=== PATIENT | female | born 1940 | race Caucasian/White ===

== ENCOUNTER 2020-04-04 12:28 | Outpatient (CLI) | payer MEDICARE, OTHER, SELFPAY ==
--- NOTE | ~2020-04-04 | CT_ITS ---
EXAMINATION: CT brain wo/w con DATE: 04/04/2020 15:42 INDICATION: Unspecified symptoms and signs involving the nervous system. Dizziness and headache. Lopez sient right eye visual loss. TECHNIQUE: Computed tomography (CT) of the head was performed without and with 100 mL Omnipaque 350 i ntravenous contrast. The mA was adjusted according to patient size. Iterative reconstruction techniqu e was employed. The dose-length product was 1210.67 mGy-cm. COMPARISON: None FINDINGS: There are scattered areas of low attenuation in the cerebral white matter and right basal g anglia. There are dystrophic calcifications in the left basal ganglia. There is no intracranial hemor rhage, acute infarction, or abnormal intracranial mass lesion. The ventricles are normal in size. The re is mild mucosal thickening in the paranasal sinuses. There is a left-sided otomastoid effusion. Th ere are erosions of the ossicles on the left, consistent with chronic otitis media. The orbits are no rmal. IMPRESSION: 1. Mild nonspecific cerebral white matter disease and disease of the right basal ganglia, which likel y represents chronic small vessel ischemic disease. Reviewed, dictated and finalized at location A. IMPRESSION: 1. Mild nonspecific cerebral white matter disease and disease of the right basa l ganglia, which likely represents chronic small vessel ischemic disease.
--- NOTE | ~2020-04-04 | US_ITS ---
EXAMINATION: US carotid duplex BI DATE: 04/04/2020 14:11 INDICATION: Carotid stenosis. TECHNIQUE: Grayscale, color Doppler, and pulsed Doppler images of the cervical carotid arteries were obtained. The degree of vessel stenosis is placed in one of the following categories: normal, <50%, 5 0-69%, >=70% but less than near-occlusion, near-occlusion, or total occlusion. Note that percent sten osis relative to normal distal artery lumen diameter is indirectly measured from velocity measurement s as described by Michael, et al. Radiology 2003; 229:340-346. Notes: Normal: Peak systolic velocity <125 centimeters/sec and no plaque <50%. Peak systolic velocity <125 ( EDV <40; ICA/CCA PSV ratio <2.0; used these factors only a tandem lesions or low cardiac output or co ntralateral disease) 50-69 %: PSV 125-230 (EDV 40-100; ratio 2-4) >= 70% but less than near occlusion: PSV greater than 230 (EDV > 100; ratio> 4.0) Near Occlusion: PSV that is variable; markedly narrowed lumen Occlusion: Absent flow on color/spectral Doppler and no lumen on henriquez scale. COMPARISON: None. FINDINGS: RIGHT: The right common carotid artery (CCA) peak systolic velocity (PSV) is 74 cm/s. The right internal car otid artery (ICA) PSV is 54 cm/s. The right ICA end-diastolic velocity (EDV) is 15 cm/s. The right IC A/CCA PSV ratio is 0.7. The external carotid artery (ECA) PSV is 71 cm/s. There is antegrade flow in the right vertebral artery. LEFT: The left CCA PSV is 102 cm/s. The left ICA PSV is 66 cm/s. The left ICA EDV is 13 cm/s. The left ICA/ CCA PSV ratio is 0.7. The ECA PSV is 65 cm/s. There is antegrade flow in the left vertebral artery. IMPRESSION: 1. Less than 50% stenosis in the right internal carotid artery by sonographic criteria. 2. Less than 50% stenosis in the left internal carotid artery by sonographic criteria. Reviewed, dictated and finalized at location A. IMPRESSION: 1. Less than 50% stenosis in the right internal carotid artery by sonographic amrit marrero. 2. Less than 50% stenosis in the left internal carotid artery by sonographic naomy david.
[2020-04-04 13:32] LABS: Basophils Percent Auto 0.1 % (0.2-1.2); Eosinophils Absolute Auto 0.1 K/mm3 (0-0.3); Eosinophils Percent Auto 1.7 % (0-4.4); Hematocrit 43.5 % (37.0-47.0); Immature Granulocyte Absolute 0.02 K/mm3 (0.00-0.031); Immature Granulocyte Percent A 0.3 % (0-0.5); Lymphocytes Percent Auto 26.9 % (18.3-44.2); Mean Corpuscular HGB Conc 32.2 g/dl (32-36); Mean Corpuscular Hemoglobin 29.7 pg (26-34); Mean Corpuscular Volume 92.4 fl (80-100); Mean Platelet Volume 10.5 fl (7.4-10.4); Monocytes Absolute Auto 0.7 K/mm3 (0.1-0.6); Monocytes Percent Auto 8.3 % (2.6-8.5); Neutrophils Absolute Auto 4.9 K/mm3 (1.3-6.7); Neutrophils Percent Auto 62.7 % (45.5-73.1); Platelet Count Result 147 k/mm3 (150-375); Red Blood Count 4.71 M/mm3 (4.2-5.4); Red Cell Distribution Width 12.4 % (11.5-14.5); White Blood Count 7.8 K/mm3 (4.5-10.0)
[2020-04-04 13:38] LABS: Hemoglobin A1C 5.8 % (<5.7)
[2020-04-04 13:39] LABS: INR 1.1; Prothrombin Time 13.4 Seconds (11.1-14.7)
[2020-04-04 13:45] LABS: Cholesterol 133 mg/dL (0-200); HDL Direct 52 mg/dL; Triglycerides 138 mg/dL (<150)
[2020-04-04 13:47] LABS: Alanine Aminotransferase 15 U/L (4-35); Albumin Level 4.2 g/dL (3.5-5.1); Alkaline Phosphatase 100 U/L (38-126); Aspartate Amino Transferase 23 U/L (14-36); Bilirubin,Total 0.5 mg/dL (0.2-1.3); Blood Urea Nitrogen 24 mg/dL (7-17); CRP < 0.5 mg/dL (<1.0); Calcium 8.9 mg/dL (8.4-10.2); Carbon Dioxide 27 mmol/L (22-30); Chloride 106 mmol/L (98-107); Estimated Glomerular Filt Rate > 60; Glucose 98 mg/dL (65-105); Potassium 4.1 mmol/L (3.4-5.0); Sodium 140 mmol/L (137-145)
[2020-04-04 13:55] LABS: LDL Cholesterol Direct 51 mg/dL
[2020-04-04 14:17] LABS: Erythrocyte Sedimentation Rate 25 mm/hr (0-20)
== END 2020-04-04 12:29 | disposition home or self-care (01) ==
PROVIDERS: PCP Internal Medicine; Visit Provider Internal Medicine
DX: R29.90 Unspecified symptoms and signs involving the nervous system (principal); H53.9 Unspecified visual disturbance; I10 Essential (primary) hypertension; R90.82 White matter disease, unspecified; I65.23 Occlusion and stenosis of bilateral carotid arteries; Z79.899 Other long term (current) drug therapy
CPT/HCPCS: 36415; 70470; 80053; 80061; 83036; 85025; 85610; 85652; 86140; 93880; Q9967

== ENCOUNTER 2020-04-25 14:45 | Outpatient (CLI) | payer MEDICARE, OTHER, SELFPAY ==
--- NOTE | 2020-04-25 | ECHO_ITS ---
Patient Info Name: Kay Jurado Age: 80 years : 1940 Gender: Female Ht: 67 in Wt: 275 lbs BSA: 2.49 m2 HR: 87 bpm BP: 185 / 93 mmHg Technical Quality: Fair Exam Date: 04/25/2020 3:14 PM Exam Location: [facility] Patient Status: Outpatient Admit Date: 04/25/2020 Staff Ordering Physician: Cuauhtemoc Snyder MD Overedge Sewer: Debbie Collado RDCS Attending Provider: Cuauhtemoc Snyder MD Referring Physician: Lillian AL; Exam Type: CA echo doppler color flow Study Info Indications - mini stroke htn Complete two-dimensional, color flow and Doppler transthoracic echocardiogram is performed. Summary 1. Left ventricular chamber dimension is normal. 2. Left ventricular systolic function is normal, estimated at 60-65%. 3. The left ventricular diastolic function is grade I diastolic dysfunction. 4. E/e' 9 is minimally elevated. 5. Right atrial chamber dimension is mildly enlarged. 6. There is mild aortic valve sclerosis. 7. There is mild tricuspid valve regurgitation. 8. No pulmonary hypertension, estimated pulmonary arterial systolic pressure is 36 mmHg. Left Ventricle E/e' 9 is minimally elevated. Left ventricular chamber dimension is normal. Left ventricular systolic function is normal, estimated at 60-65%. The left ventricular diastolic function is grade I diastolic dysfunction. Right Ventricle Right ventricular chamber dimension is normal. Right ventricular systolic function is normal. Left Atria Left atrial chamber dimension is normal. Right Atria Right atrial chamber dimension is mildly enlarged. Aortic Valve The aortic valve is trileaflet. There is mild aortic valve sclerosis. There is no aortic valve stenosis. There is no aortic valve regurgitation. Pulmonic Valve There is no pulmonic regurgitation. Mitral Valve There is no mitral valve stenosis. There is no mitral valve regurgitation. Tricuspid Valve There is mild tricuspid valve regurgitation. No pulmonary hypertension, estimated pulmonary arterial systolic pressure is 36 mmHg. Pericardium/Pleural There is no pericardial effusion. Inferior Vena Cava Normal inferior vena cava with >50% collapse upon inspiration consistent with normal right atrial pressure, 5 mmHg. Aorta The aortic root size at the sinus of Valsalva is normal. Left Ventricular Outflow Tract Name Value Normal LVOT 2D LVOT Diameter 2.0 cm LVOT Doppler LVOT Peak Gradient 5 mmHg LVOT Mean Gradient 3 mmHg LVOT VTI 25 cm LVOT VTI/AV VTI Ratio 0.8 LVOT Stroke Volume 81 ml LVOT CO 17.0 l/min LVOT CI 6.8 l/min/m2 Pulmonic Valve Name Value Normal PV Doppler PV Peak Grad
--- NOTE | 2020-05-01 08:25 | WPDHOLTEREM ---
Holter/Event Monitor Holter/Event Monitor Date of procedure: 04/25/20 Procedure Type: 48 hour holter monitor Indications: Mini stroke Conclusion: 1. 48 hour holter monitor on 04/25/20. 2. Underlying rhythm is sinus rhythm. HR range 28-94 bpm; average HR 62 bpm. 3. There are 6,139 premature supraventricular complexes, 25 supraventricular couplets, 1,809 supraventricular bigeminy and 3 supraventricular trigeminy. No supraventricular tachycardia. 4. There are 1,171 premature ventricular complexes and 2 ventricular couplets. No ventricular tachycardia. 5. First degree AV block. Intermittent pauses greater than 2 seconds with longest pause at 2.8 seconds. 6. No symptoms available for correlation.
== END 2020-04-25 14:46 | disposition home or self-care (01) ==
PROVIDERS: PCP Internal Medicine; Visit Provider Internal Medicine
DX: I63.9 Cerebral infarction, unspecified (principal); I35.1 Nonrheumatic aortic (valve) insufficiency; I36.1 Nonrheumatic tricuspid (valve) insufficiency
CPT/HCPCS: 93225; 93226; 93306

== ENCOUNTER → 2021-07-31 15:17 | Outpatient (CLI) | payer MEDICARE, OTHER, SELFPAY ==
--- NOTE | ~2021-07-31 | XR_ITS ---
EXAMINATION: XR lumbar spine 6V w bending DATE: 07/31/2021 15:59 INDICATION: Low back pain, unspecified. TECHNIQUE: 7 views of lumbar spine including flexion and extension views were obtained. COMPARISON: CT abdomen and pelvis 11/10/2018 FINDINGS: There is 8 degrees dextrocurvature of lumbar spine. Vertebral body heights are normal. Ther e is moderately decreased disc height at L1-L2 and mildly decreased disc height at L2-L3, L3-L4, and L5-S1. There are endplate osteophytes at all levels. There is multilevel facet joint osteoarthritis, severe bilaterally at L4-L5 and L5-S1. The spine is hypomobile with flexion and extension. There is a stent graft in abdominal aorta and the common iliac arteries. There are stents in the right external and internal iliac arteries. There are are embolization coils in left internal iliac artery. Surgica l clips in the right upper quadrant are likely from cholecystectomy. IMPRESSION: 1. Moderate lumbar spondylosis. Reviewed, dictated and finalized at location A.
== END ==
PROVIDERS: PCP Internal Medicine; Visit Provider Internal Medicine
DX: M54.50 Low back pain, unspecified (principal); G89.29 Other chronic pain; M47.816 Spondylosis without myelopathy or radiculopathy, lumbar region
CPT/HCPCS: 72114

== ENCOUNTER → 2021-08-14 13:48 | Outpatient (CLI) | payer MEDICARE, OTHER, SELFPAY ==
--- NOTE | ~2021-08-14 | CT_ITS ---
EXAMINATION: CT lumbar spine wo con DATE: 08/14/2021 14:06 INDICATION: Lumbar radiculopathy. TECHNIQUE: Computed tomography (CT) of the lumbar spine was performed without intravenous contrast. A utomated exposure control and iterative reconstruction technique were employed. The dose-length produ ct was 867.91 mGy-cm. 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 There are embolization c oils in left internal iliac artery. 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 There is a 2.4 cm fusiform aneurysm of left common iliac artery. There is 9 degrees dextrocurvature of lumbar spine. There is mild chronic anterior wedging of L2 vertebral body. There is moderately de creased disc height at T12-L1, severely decreased disc height at L1-L2, mildly decreased disc height from L2-L3 through L4-L5, and severely decreased disc at L5-S1 with endplate remodeling. The followin g disc levels are specifically discussed: T12-L1: The disc is bulging. There is mild bilateral facet joint osteoarthritis. There is mild right neural foraminal stenosis. There is mild central canal stenosis. L1-L2: The disc is bulging. There is mild bilateral facet joint osteoarthritis. There is mild right a nd moderate left neural foraminal stenosis. There is mild central canal stenosis. L2-L3: The disc is bulging. There is severe bilateral facet joint osteoarthritis. There is mild bilat eral neural foraminal stenosis. There is mild central canal stenosis. L3-L4: The disc is bulging. There is severe bilateral facet joint osteoarthritis. There is mild bilat eral neural foraminal stenosis. There is mild central canal stenosis. L4-L5: The disc is bulging. There is severe bilateral facet joint osteoarthritis. There is moderate r ight and mild left neural foraminal stenosis. There is mild central canal stenosis. L5-S1: The disc is bulging. There is severe bilateral facet joint osteoarthritis. There is moderate r ight and mild left neural foraminal stenosis. There is mild central canal stenosis. IMPRESSION: 1. Severe lumbar spondylosis, mildly worsened from 05/30/2017. Reviewed, dictated and finalized at location A.
== END ==
PROVIDERS: PCP Internal Medicine; Visit Provider Nurse Practitioner Adult Health
DX: M54.16 Radiculopathy, lumbar region (principal); M47.816 Spondylosis without myelopathy or radiculopathy, lumbar region
CPT/HCPCS: 72131

== ENCOUNTER → 2022-07-07 14:06 | Outpatient (CLI) | payer MEDICARE, OTHER, SELFPAY ==
--- NOTE | ~2022-07-07 | XR_ITS ---
EXAM: XR knee LT 3V DATE: 07/07/2022 14:26 HISTORY: M25.569 - Pain in unspecified knee . COMPARISON: None available. FINDINGS: Decreased mineralization. No fracture or dislocation. No lytic or blastic lesion. Severe l ateral joint space narrowing. Tricompartmental osteophytosis, moderate in medial compartment. No eros ion or periosteal change. Soft tissues within normal limits. Moderate volume joint fluid. IMPRESSION: No acute osseous finding in the left knee. Moderate left knee joint effusion. Tricompartm ental arthritic changes, severe in the lateral compartment Reviewed, dictated and finalized at location K. IMPRESSION: No acute osseous finding in the left knee. Moderate left knee joint effusion. Tricompartmental arthritic changes, severe in the lateral compartmen t
== END ==
PROVIDERS: PCP Internal Medicine; Visit Provider Internal Medicine
DX: M25.462 Effusion, left knee (principal); M17.12 Unilateral primary osteoarthritis, left knee
CPT/HCPCS: 73562

== ENCOUNTER 2022-10-23 15:43 | Emergency (ER) | payer MEDICARE, OTHER, SELFPAY ==
--- NOTE | ~2022-10-23 | US_ITS ---
EXAMINATION: US venous doppler [facility] DATE: 10/23/2022 17:03 INDICATION: Left lower limb pain and swelling TECHNIQUE: Grayscale ultrasound images without and with compression and Doppler ultrasound images of the left lower extremity veins were obtained. COMPARISON: None. FINDINGS: The visualized portions of left common femoral vein, profunda (deep) femoral vein, femoral vein, popl iteal vein, peroneal veins, posterior tibial veins, gastrocnemius vein and greater saphenous vein out flow appear patent. Assessment of the posterior tibial and peroneal veins of the calf is however some what limited by the small size of the vessels relative to patient body habitus. IMPRESSION: 1. No deep venous thrombosis in the left lower limb. Reviewed, dictated and finalized at location A. [employer]PECTING [employer]PER[employer]
[2022-10-23 16:04] VITALS: BP 173/108; PULSE 83; RESP 16; TEMP 36.5; O2SAT 96
--- NOTE | 2022-10-23 17:32 | ED.EXTPRO ---
HPI - Extremity Problem General Chief complaint: Extremity Problem,Nontraumatic Stated complaint: L LEG PAIN AND SWELLING R/O DVT Time Seen by Provider: 10/23/22 17:10 History of Present Illness HPI Narrative: 82-year-old female presents to the emergency room for evaluation of left knee pain that radiates into her rosa for 3 months. States that she was evaluated by orthopedics they onset of her pain, and was given a steroid injection. Reports no relief following that injection. Patient states pain is worse with ambulation, and she is limiting her activity/ambulation. Constantly uses a walker. Denies any new injury or trauma. Patient states that she contacted her PCP earlier today requesting an MRI, and he recommended patient come to the emergency room to be evaluated for a DVT Related Data Home Medications Medication Instructions Recorded Confirmed aspirin 81 mg tablet,delayed 81 mg PO DAILY 04/11/20 07/23/22 release (Adult Low Dose Aspirin) cholecalciferol (vitamin D3) 50 100 mcg PO DAILY 07/23/21 07/23/22 mcg (2,000 unit) capsule Allergies Allergy/AdvReac Type Severity Reaction Status Date / Time ciprofloxacin AdvReac Mild Itching Verified 10/23/22 17:17 Review of Systems Review of Systems: CONSTITUTIONAL: Denies fever, chills, or sweats. EYES: Denies visual changes, redness, or discharge. ENT: Denies rhinorrhea, congestion, sore throat, or otalgia. CARDIOVASCULAR: Denies chest pain, palpitations, or edema. RESPIRATORY: Denies cough or dyspnea. GASTROINTESTINAL: Denies abdominal pain, nausea, vomiting, or diarrhea. GENITOURINARY: Denies dysuria or hematuria. SKIN: Denies rash or itching. MUSCULOSKELETAL: Reports left knee pain NEUROLOGIC: Denies headache, numbness, dizziness, or weakness. PSYCHIATRIC: Denies anxiety or depression. [facility] Past Medical History Medical History Abnormal finding of blood chemistry, unspecified Acute gangrenous cholecystitis Amaurosis fugax Aneurysm artery, iliac Aneurysm, common iliac artery Benign essential hypertension Body mass index (BMI) 40.0-44.9, adult Calculus of gallbladder Carotid stenosis Chronic low back pain Chronic UTI COPD (chronic obstructive pulmonary disease) DJD (degenerative joint disease) Dysuria Elbow pain, left Elevated glucose Encounter for Medicare annual wellness exam Encounter for routine adult health examination without abnormal findings Folliculitis Follow up Grade I diastolic dysfunction Hearing loss of both ears History of abdominal aortic aneurysm (AAA) History of amaurosis fugax History of TIA (transient ischemic attack) Hx of colonic polyps Hyperlipidemia Loss of part of visual field Need for influenza vaccination On terminal makeup operator drug therapy Pain in left arm PVD (peripheral vascular disease) Rash Symptoms of cerebrovascular accident (CVA) TIA (transient ischemic attack) Urinary frequency UTI (urinary tract infection) Vision changes Vitamin D deficiency Xanthelasma of left upper eyelid Surgical History Surgical History History of cholecystectomy S/P cholecystectomy Family History Family History Father Family history of aortic aneurysm Hypertension Mother Family history of malignant melanoma Family history of malignant neoplasm Sibling Family history of malignant melanoma Social History Social History Smoking status: Former smoker Second hand tobacco smoke exposure: No Smoking end date: 10/26/84 Alcohol intake: never Exam Narrative: GENERAL: Well-appearing, well-nourished, no physical limitations, and in no acute distress. HEAD: Normocephalic, atraumatic. EYES: Conjunctivae normal, PERRLA and EOMI. CHEST: Clear to auscultation. No respiratory distress. No wheezes rales or rhonchi. HEAR
== END 2022-10-23 18:40 | disposition home or self-care (01) ==
LOC: ANHED 18:12
PROVIDERS: Emergency Provider Nurse Practitioner Family; PCP Internal Medicine
DX: M25.562 Pain in left knee (principal); G89.29 Other chronic pain; I10 Essential (primary) hypertension; J44.9 Chronic obstructive pulmonary disease, unspecified; E78.5 Hyperlipidemia, unspecified; I73.9 Peripheral vascular disease, unspecified; E55.9 Vitamin D deficiency, unspecified; Z87.440 Personal history of urinary (tract) infections; Z86.73 Personal history of transient ischemic attack (TIA), and cerebral infarction without residual deficits; Z86.010 Personal history of colon polyps; Z79.82 Long term (current) use of aspirin; Z87.891 Personal history of nicotine dependence
CPT/HCPCS: 93971; 99284

== ENCOUNTER 2023-02-23 12:41 | Emergency (ER) | payer MEDICARE, OTHER, SELFPAY ==
[2023-02-23] VITALS (11 sets, daily range): BP systolic 153–172; BP diastolic 69–99; PULSE 61–67; RESP 16–20; TEMP 36.5; O2SAT 95–99
--- NOTE | ~2023-02-23 | CT_ITS ---
EXAMINATION: CTA abdomen pelvis DATE: 02/23/2023 16:35 INDICATION: Blood in stool. TECHNIQUE: Computed tomographic angiography (CTA) of the abdomen and pelvis was performed with 100 mL Omnipaque-350 intravenous contrast. Automated exposure control and iterative reconstruction techniqu e were employed. The dose-length product was 1509.05 mGy-cm. Maximum intensity projection 3D-reconstr uctions of the aorta and other arteries were constructed by the technologist on a separate workstatio n. COMPARISON: CT abdomen and pelvis 11/10/2018 FINDINGS: The visualized portions of the lung bases demonstrate mild atelectasis. No pleural effusion . The heart size is normal. There are coronary artery calcifications. No pericardial effusion. There are cysts in the liver measuring up to 10 mm. There are changes of cholecystectomy. The spleen, pancr eas, and adrenal glands are normal. There are is cortical thinning of the kidneys. There are cysts in the kidneys measuring up to 1.4 cm on the left. There is a 15 mm mass in left kidney measuring soft tissue attenuation. There is a stent graft in abdominal aorta and the common and external iliac arter ies and right internal iliac artery. There is occlusion of left internal iliac artery. There is no ab dominal aortic aneurysm. There is no significant stenosis of celiac axis, superior mesenteric artery, or the renal arteries. There is total occlusion of proximal inferior mesenteric artery. There is div erticulosis of the colon without evidence of diverticulitis. There are no dilated loops of bowel. The appendix is normal. There are no pathologically enlarged lymph nodes. There is no free intraperitone al fluid. There is severe lumbar spondylosis. IMPRESSION: 1. No etiology for blood in stool. 2. 15 mm left kidney mass, which may be a hemorrhagic cyst or less likely a neoplasm. Abdomen CT with out and with contrast is recommended. Reviewed, dictated and finalized at location A. IMPRESSION: 1. No etiology for blood in stool. 2. 15 mm left kidney mass, which may be a hemorrhagic cyst or less likely a samuel plasm. Abdomen CT without and with contrast is recommended.
[2023-02-23] MEDS: PANTOPRAZOLE SODIUM IV 40 MG VIAL IV PUSH (15:52)
[2023-02-23 15:58] LABS: Basophils Percent Auto 0.4 % (0.2-1.2); Eosinophils Absolute Auto 0.1 K/mm3 (0-0.3); Eosinophils Percent Auto 1.2 % (0-4.4); Hematocrit 45.5 % (37.0-47.0); Hemoglobin 14.7 g/dL (12.0-15.0); Immature Granulocyte Absolute 0.02 K/mm3 (0.00-0.031); Immature Granulocyte Percent A 0.3 % (0-0.5); Lymphocytes Absolute Auto 2.03 K/mm3 (0.9-3.2); Lymphocytes Percent Auto 26.6 % (18.3-44.2); Mean Corpuscular HGB Conc 32.3 g/dl (32-36); Mean Corpuscular Hemoglobin 29.6 pg (26-34); Mean Corpuscular Volume 91.7 fl (80-100); Mean Platelet Volume 10.4 fl (7.4-10.4); Monocytes Absolute Auto 0.6 K/mm3 (0.1-0.6); Monocytes Percent Auto 7.3 % (2.6-8.5); Neutrophils Absolute Auto 4.9 K/mm3 (1.3-6.7); Neutrophils Percent Auto 64.2 % (45.5-73.1); Platelet Count Result 152 k/mm3 (150-375); Red Blood Count 4.96 M/mm3 (4.2-5.4); Red Cell Distribution Width 12.4 % (11.5-14.5); White Blood Count 7.6 K/mm3 (4.5-10.0)
[2023-02-23 16:07] LABS: Prothrombin Time 14.1 Seconds (11.1-14.7)
[2023-02-23 16:08] LABS: Alanine Aminotransferase 18 U/L (6-35); Albumin Level 4.4 g/dL (3.5-5.1); Alkaline Phosphatase 112 U/L (38-126); Anion Gap 5 mmol/L (8-16); Aspartate Amino Transferase 27 U/L (14-36); Bilirubin,Total 1.1 mg/dL (0.2-1.3); Blood Urea Nitrogen 15 mg/dL (7-17); Calcium 9.1 mg/dL (8.4-10.2); Carbon Dioxide 30 mmol/L (22-30); Chloride 104 mmol/L (98-107); Estimated CRCL calculation 56 ml/min; Estimated Glomerular Filt Rate > 60; Glucose 98 mg/dL (65-110); Magnesium 2.1 mg/dL (1.6-2.3); Sodium 139 mmol/L (137-145)
[2023-02-23 16:09] LABS: Partial Thromboplastin Time 29.7 SECONDS (22.3-36.8)
--- NOTE | 2023-02-23 17:36 | ED.GIBLEED ---
HPI - GI Bleed General Chief complaint: GI Bleed Stated complaint: blood in stool with BM Time Seen by Provider: 02/23/23 15:36 History of Present Illness HPI Narrative: Pt has intermittently noticed some blood in her stool for the last month, only when she has bowel movements and not otherwise. No abdominal pain, nausea or vomiting. Related Data Home Medications Medication Instructions Recorded Confirmed aspirin 81 mg tablet,delayed 81 mg PO DAILY 04/11/20 01/21/23 release (Adult Low Dose Aspirin) cholecalciferol (vitamin D3) 50 100 mcg PO DAILY 07/23/21 01/21/23 mcg (2,000 unit) capsule Allergies Allergy/AdvReac Type Severity Reaction Status Date / Time ciprofloxacin AdvReac Mild Itching Verified 02/23/23 15:57 Review of Systems Review of Systems: CONST: No fever. HEENT: No sore throat C/V: No chest pain RESP: No cough GI: Some blood in stool : No dysuria. M/S: No joint pain. SKIN: No rash. NEURO: [No headache or focal numbness or weakness] PSYCH: [No depression] [facility] Past Medical History Medical History Abnormal finding of blood chemistry, unspecified Acute gangrenous cholecystitis Amaurosis fugax Aneurysm artery, iliac Aneurysm, common iliac artery Benign essential hypertension Body mass index (BMI) 40.0-44.9, adult Calculus of gallbladder Carotid stenosis Chronic low back pain Chronic UTI COPD (chronic obstructive pulmonary disease) DJD (degenerative joint disease) Dysuria Elbow pain, left Elevated glucose Encounter for Medicare annual wellness exam Encounter for routine adult health examination with abnormal findings Encounter for routine adult health examination without abnormal findings Folliculitis Follow up Grade I diastolic dysfunction Hearing loss of both ears History of abdominal aortic aneurysm (AAA) History of amaurosis fugax History of TIA (transient ischemic attack) Hx of colonic polyps Hyperlipidemia Loss of part of visual field Need for influenza vaccination On buttermaker drug therapy Pain in left arm PVD (peripheral vascular disease) Rash Symptoms of cerebrovascular accident (CVA) TIA (transient ischemic attack) Urinary frequency UTI (urinary tract infection) UTI (urinary tract infection) Vision changes Vitamin D deficiency Xanthelasma of left upper eyelid Surgical History Surgical History History of cholecystectomy S/P cholecystectomy Family History Family History Father Family history of aortic aneurysm Hypertension Mother Family history of malignant melanoma Family history of malignant neoplasm Sibling Family history of malignant melanoma Social History Social History Smoking status: Former smoker Second hand tobacco smoke exposure: No Smoking end date: 10/26/84 Alcohol intake: never Lack of Transportation: No Lack of Food: Never True Current Housing: I Have Housing Concerned About Future Housing: No Difficulty Paying Gas/Electric Bills: No Difficulty Paying for Meds: No Currently Unemployed: No Education: High School Diploma/GED Difficulty w/ Childcare or Family Care: No Living arrangements: with family Gender identity (if verbalized by the patient): Female Exam Narrative: EXAMINATION OF ORGAN SYSTEMS/BODY AREAS: Constitutional: Vital signs per nursing GENERAL:[No acute distress, non-toxic appearing.] HEAD: Normal with no signs of head trauma. EYES: EOMI, conjunctiva normal ENT: Hearing grossly intact LUNGS: Nonlabored breathing. HEART: [Regular rate and rhythm] ABD: [Soft], [nontender to palpation] RECTAL: Grossly brown stool, hemoccult+ EXT: Normal range of motion SKIN: [No rashes or lesions.] NEURO: [Alert and oriented x 3. No gross focal sensory or strength deficits.] PSYCH: Normal affect
--- NOTE | 2023-02-23 17:45 | PC.NURSE ---
patient voided and requested urinalysis to see if she had UTI. hx of recurring UTIs. Provider aware. new orders received. patient aware discharge will be postponed until results available. verbalized understanding
[2023-02-23 18:00] LABS: Bacteria Urine 4+ /hpf; Non Pathogenic Casts 0-2; RBC Urine 0-2 /hpf (0-2); Squamous Epithelial Cell Urine None seen /hpf (Few); WBC Urine 0-5 /hpf
[2023-02-23 18:10] LABS: Appearance Urine Slightly Cloudy (Clear); Bilirubin Urine Negative (Negative); Blood Urine Trace-intact (Negative); Color Urine Yellow (Yellow); Glucose Urine UA Negative (Negative); Ketones Urine Negative (Negative); Leukocyte Esterase Ur Negative LEU/UL (Negative); Nitrate Urine Positive (Negative); Protein Urine Negative (Negative); Urobilinogen Urine 0.2 mg/dL (<2.0); pH Urine 5.5 (5.0-9.0)
[2023-02-23 18:13] LABS: Add Urine Microscopic? YES
== END 2023-02-23 18:19 | disposition home or self-care (01) ==
PROVIDERS: Emergency Provider Emergency Medicine; PCP Internal Medicine
DX: K92.1 Melena (principal); I10 Essential (primary) hypertension; I65.29 Occlusion and stenosis of unspecified carotid artery; I73.9 Peripheral vascular disease, unspecified; J44.9 Chronic obstructive pulmonary disease, unspecified; E78.5 Hyperlipidemia, unspecified; E55.9 Vitamin D deficiency, unspecified; Z86.73 Personal history of transient ischemic attack (TIA), and cerebral infarction without residual deficits; Z87.440 Personal history of urinary (tract) infections; Z86.010 Personal history of colon polyps; Z87.891 Personal history of nicotine dependence; Z90.49 Acquired absence of other specified parts of digestive tract; Z79.82 Long term (current) use of aspirin
CPT/HCPCS: 36415; 74174; 80053; 81001; 83735; 85025; 85610; 85730; 86850; 86900; 86901; 96374; 99284; C9113; Q9967

== ENCOUNTER 2023-03-26 12:53 | Outpatient (CLI) | payer MEDICARE, OTHER, SELFPAY ==
--- NOTE | ~2023-03-26 | CT_ITS ---
EXAMINATION: CT abdomen pelvis wo/w con DATE: 03/26/2023 13:27 INDICATION: Left kidney mass TECHNIQUE: Computed tomography (CT) of the abdomen was performed without intravenous contrast. CT of the abdomen and pelvis was then performed with a total of 100 mL Omnipaque 350 intravenous contrast. The dose-length product (DLP) was 2162.05 mGy-cm. Automated exposure control and iterative reconstruc tion technique were employed. COMPARISON: 02/23/2023 FINDINGS: Minimal dependent atelectasis is present in the lung bases. The heart size is normal. Cysts of the liver measure up to 9 mm in the right hepatic lobe. The spleen, pancreas, and adrenal glands are normal. The gallbladder is surgically absent. There is a 15 mm mass of the left kidney upper pole which is mildly hyperattenuating on precontrast images and without significant enhancement after con trast administration. Simple cysts of the kidneys measure up to 10 mm on the left. No pathologically enlarged abdominal or pelvic lymph nodes are identified. No free intraperitoneal gas or evidence of b owel obstruction. There is an aortobiiliac endoluminal stent. There is occlusion of the left internal iliac artery. There is no abdominal aortic aneurysm. The inferior mesenteric artery is occluded prox imally. There is severe lumbar spondylosis. IMPRESSION: 1. Proteinaceous cyst of the left kidney accounting for the finding in question on comparison CT. Reviewed, dictated and finalized at location L.
== END 2023-03-26 12:54 | disposition home or self-care (01) ==
PROVIDERS: PCP Internal Medicine; Visit Provider Internal Medicine
DX: N28.1 Cyst of kidney, acquired (principal)
CPT/HCPCS: 74178; Q9967

== ENCOUNTER 2023-08-26 14:57 | Outpatient (CLI) | payer MEDICARE, OTHER, SELFPAY ==
--- NOTE | ~2023-08-26 | XR_ITS ---
EXAM: XR hip RT 2V w AP pelvis DATE: 08/26/2023 15:22 HISTORY: CHRONIC PAIN, NO INJURY . COMPARISON: 02/26/2007. FINDINGS: Decreased mineralization. No fracture or dislocation. No lytic or blastic lesion. Moderate degenerative changes in the bilateral hips and pubic symphysis. No erosion or periosteal change. Sof t tissues within normal limits. Iliac stent grafts. Pelvic embolization coil. IMPRESSION: Moderate bilateral hip osteoarthritis. Moderate osteitis pubis. Reviewed, dictated and finalized at location K.
--- NOTE | ~2023-08-26 | XR_ITS ---
EXAM: XR knee LT min 4V DATE: 08/26/2023 15:23 HISTORY: CHRONIC PAIN, NO INJURY . COMPARISON: 07/07/2022. FINDINGS: Normal mineralization. No fracture or dislocation. No lytic or blastic lesion. Moderate me dial joint space narrowing. Moderate tricompartmental osteophytosis. Small volume joint effusion. No erosion or periosteal change. Soft tissues within normal limits. IMPRESSION: Moderate tricompartmental left knee osteoarthritis. Reviewed, dictated and finalized at location K.
== END 2023-08-26 14:58 | disposition home or self-care (01) ==
PROVIDERS: PCP Internal Medicine; Visit Provider Internal Medicine
DX: M16.0 Bilateral primary osteoarthritis of hip (principal); M86.9 Osteomyelitis, unspecified; M17.12 Unilateral primary osteoarthritis, left knee
CPT/HCPCS: 73502; 73564

== ENCOUNTER 2024-10-06 14:05 | Outpatient (CLI) | payer MEDICARE, OTHER, SELFPAY ==
--- NOTE | ~2024-10-06 | US_ITS ---
EXAMINATION: US venous doppler [facility] DATE: 10/06/2024 14:57 INDICATION: Left lower limb edema. TECHNIQUE: Grayscale ultrasound images without and with compression and Doppler ultrasound images of the bilateral lower extremity veins were obtained. COMPARISON: Ultrasound 10/23/2022 FINDINGS: The visualized portions of right common femoral vein, profunda (deep) femoral vein, femoral vein, pop liteal vein, peroneal veins, posterior tibial veins, and greater saphenous vein outflow are patent. The visualized portions of left common femoral vein, profunda femoral vein, femoral vein, popliteal v ein, peroneal veins, posterior tibial veins, and greater saphenous vein outflow are patent. IMPRESSION: 1. No deep venous thrombosis. Reviewed, dictated and finalized at location A. [employer] OPERATOR
--- OUTSIDE RECORDS SUMMARY | 2024-10-06 14:09 | XMS_ITS | Continuity of Care Document ---
Author Name [facility] Organization [facility] Care Team Providers Care Patient Advocate Name Role Phone [facility] Unavailable Unavailable Medications Combined list of outpatient medications from Department of Defense and Veterans Affairs facilities.Medications provided include 1) outpatient medications from the last 15 months, and 2) patient-reported medications. Medication Details Route Status Patient Instructions Prescription Expires Prescription Number Last Dispense Date Ordering Provider Order Date Order Qty Source CARVEDILOL (CARVEDILOL ), 12.5MG, TABLET, ORAL, [employer], 500 ea. BOTTLE Active [id number] 4 2023 180 Pharmac y Data Trans[employer] tion Service Facilit y CEPHALEXIN (CEPHALEXIN MONOHYDRATE ), 500MG, CAPSULE, ORAL, [employer] [place], 500 ea. BOTTLE Active [id number] 4 2023 20 Pharmac y Data Transac tion Service Facilit y CEPHALEXIN (CEPHALEXIN MONOHYDRATE ), 500MG, CAPSULE, ORAL, [employer] [place], 500 ea. BOTTLE Active [id number] 4 2023 20 Pharmac y Data Transac tion Service Facilit y CEPHALEXIN (CEPHALEXIN MONOHYDRATE ), 500MG, CAPSULE, ORAL, [employer] [place], 500 ea. BOTTLE Cancele d [id number] : 2023 0 Pharmac y Data Transac tion Service Facilit y CIPROFLOXAC IN HCL (CIPROFLOXA TRISTAN HCL), 250MG, TABLET, ORAL, [facility], 100 ea. BOTTLE Cancele d [id number] : 2022 0 Pharmac y Data Transac tion Service Facilit y ESTRADIOL (estradiol) , 0.01 %, CREAM/APPL, VAGINAL, [employer] [place], 42.5 g TUBE Active [id number] 04/15/20 2 4 2023 42.5 Pharmac y Data Transac tion Service Facilit y Hydrochloro thiazide (Hydrochlor othiazide), 25mg, Tablet, Oral, [facility], 1000 Ea. Bottle Active [id number] 3 2022 90 Pharmac y Data Transac tion Service Facilit y HYDROXYZINE HCL (hydroxyzin e HCl), 25 MG, TABLET, ORAL, [facility], 500 ea. BOTTLE Cancele d [id number] : 2023 0 Pharmac y Data Transac tion Service Facilit y HYDROXYZINE HCL (hydroxyzin e HCl), 25 MG, TABLET, ORAL, [facility], 500 ea. BOTTLE Active [id number] 4 2023 90 Pharmac y Data Transac tion Service Facilit y Allergies, Adverse Reactions, Alerts Combined list of allergies from Department of Defense and Veterans Affairs facilities. It does not include entries that were removed or entered in error. Substance Category Reaction Severity Reaction type Status Date Reported Comments Source No Known Allergies Drug allergy (disorder) active 06/18/2011 [facility] Siva PIPER ([facility] [place]) Social History Combined list of available smoking, tobacco, and other social history from Department of Defense and Veterans Affairs facilities. Social History Type Response Date Comment [facility] e This section is an empty social history section. [employer]
== END 2024-10-06 14:06 | disposition home or self-care (01) ==
PROVIDERS: PCP Internal Medicine; Visit Provider Internal Medicine
DX: R22.42 Localized swelling, mass and lump, left lower limb (principal)
CPT/HCPCS: 93970